=== PATIENT | male | born 1980 | race Caucasian/White ===

== ENCOUNTER 2019-05-17 12:58 | Emergency (ER) | payer BC ==
[2019-05-17 14:56] LABS: Influenza A Molecular Negative (Negative); Influenza B Molecular Negative (Negative)
--- NOTE | 2019-05-17 15:08 | UC ---
FLU HPI - HPI Summary HPI Summary: 38-year-old male presents with complaints of onset of intermittent lower abdominal cramping and diarrhea at 4:00 AM this morning. Reports had a fever of 101.3 F early this morning. Reports multiple episodes of watery diarrhea however has had no further episodes for approximately 2-3 hours. States cramping subsides after defecation. Currently without pain. States a couple hours ago started with some mild body aches and nasal congestion and was concerned for possible flu. No recent travel out of the country or antibiotic use. Denies headache, dizziness, ear pain, sore throat, chest pain, shortness of breath, nausea, or vomiting. - History of Current Complaint Chief Complaint: UCGeneralIllness Stated Complaint: FLU LIKE SYMPTOMS Time Seen by Provider: 05/17/19 15:02 Hx Obtained From: Patient Pain Intensity: 0 - Allergy/Home Medications Allergies/Adverse Reactions: Allergies Allergy/AdvReac Type Severity Reaction Status Date / Time No Known Allergies Allergy Verified 05/17/19 14:22 Home Medications: Home Medications Metoprolol Tartrate TAB* [Lopressor TAB*] 1 tab PO DAILY 05/17/19 [History Confirmed 05/17/19] Synthroid 125 MCG TAB* 1 tab PO DAILY 05/17/19 [History Confirmed 05/17/19] PMH/Surg Hx/FS Hx/Imm Hx Previously Healthy: Yes Endocrine History: Thyroid Disease Cardiovascular History: Hypertension, Atrial Fibrillation - Surgical History Surgery Procedure, Year, and Place: tumor chest removed - Family History Known Family History: Positive: Non-Contributory - Social History Occupation: Employed Full-time Lives: Alone Alcohol Use: None Substance Use Type: None Smoking Status (MU): Never Smoked Tobacco When Did the Patient Quit Smoking/Using Tobacco: vape Review of Systems All Other Systems Reviewed And Are Negative: Yes Constitutional: Positive: Fever, Chills Eyes: Negative: Drainage, Eye Redness ENT: Positive: Nasal Discharge, Sinus Congestion. Negative: Sore Throat, Ear Ache, Sinus Pain/Tenderness Respiratory: Negative: Shortness Of Breath, Cough Cardiovascular: Negative: Palpitations, Chest Pain Gastrointestinal: Positive: Abdominal Pain - See HPI, Diarrhea. Negative: Vomiting, Nausea Genitourinary: Positive: Negative Musculoskeletal: Positive: Myalgia Neurological/Mental Status: Positive: Negative Is Patient Immunocompromised?: No Physical Exam - Summary Physical Exam Summary: GENERAL APPEARANCE: Well developed, well nourished, alert and cooperative, and appears to be in no acute distress. EYES: Conjunctiva clear. No drainage. EARS: External auditory canals and tympanic membranes clear, hearing grossly intact. NOSE: No nasal discharge. THROAT: Pharynx normal. No tonsilar inflammation, swelling, exudate, or lesions. Uvula midline. NECK: Neck supple, non-tender without lymphadenopathy. CARDIAC: Normal S1 and S2. No S3, S4 or murmurs. Rhythm is regular. There is no peripheral edema, cyanosis or pallor. Extremities are warm and well perfused. Capillary refill is less than 2 seconds. Peripheral pulses intact. LUNGS: Clear to auscultation without rales, rhonchi, wheezing or diminished breath sounds. ABDOMEN: Positive bowel sounds. Soft, nondistended, nontender. No guarding or rebound. No masses or hepatosplenomegally. MUSKULOSKELETAL: ROM intact to all extremities. No joint erythema or tenderness. Normal muscular development. Normal gait. SKIN: Skin normal color, texture and turgor with no lesions or eruptions. Triage Information Reviewed: Yes Vital Signs: Initial Vital Signs Temp 99.3 F 05/17/19 13:58 Pulse 92 05/17/19 13:58 Resp 16 05/17/19 13:58 BP 131/86 05/17/19 13:58 Pulse Ox 99 05/17/19 13:58 Vital Signs Reviewed: Yes Flu Course/Dx - Course Course Of Treatment: 38-year-old male presents with complaints of onset of intermittent lower abdominal cramping and diarrhea at 4:00 AM this morning. Reports had a fever of 101.3 F early this morning. Reports multiple episodes of watery diarrhea however has had no further episodes for approximately 2-3 hours. States cramping subsides after defecation. Currently without pain. States a couple hours ago started with some mild body aches and nasal congestion and was concerned for possible flu. No recent travel out of the country or antibiotic use. Denies headache, dizziness, ear pain, sore throat, chest pain, shortness of breath, nausea, or vomiting. Afebrile. Vital signs stable. Patient's exam was overall unremarkable. Rapid influenza test was negative. Reviewed results with the patient. We discussed that his symptoms were likely from a viral gastroenteritis although I cannot fully rule out the possibility of a bacterial infection at this time. Recommending symptomatic treatment for acute diarrhea. He is to return here or follow-up with primary care in 3-5 days if symptoms are not improving. Anticipatory guidance and warning symptoms reviewed with the patient. Verbalizes understanding and agrees with plan of care. - Differential Dx/Diagnosis Differential Diagnosis/HQI/PQRI: Influenza, Other - gastroenteritis Provider Diagnosis: Diarrhea Discharge ED - Sign-Out/Discharge Documenting (check all that apply): Patient Departure All imaging exams completed and their final reports reviewed: No Studies - Discharge Plan Condition: Stable Disposition: HOME Patient Education Materials: Acute Diarrhea (ED) Referrals: No Primary Care Phys,NOPCP [Primary Care Provider] - Additional Instructions: Acute diarrhea typically resolves on its own without treatment over 2-3 days. The most important consideration with diarrhea is avoiding dehydration. Be sure to drink plenty of fluids. Avoid beverages containing caffeine or artificial sweeteners as these can worsen symptoms. Be sure to eat a well balanced diet. Boiled starches and cereals (potatoes, rice , cream of wheat, oatmeal) as well as food such as crackers, toast, bananas, soups and boiled vegetables are usually recommended if you are having watery diarrhea. Be sure to use good hand hygiene to prevent spreading infection. Use an over the counter pain medication such as acetaminophen (Tylenol) or ibuprofen (Advil, Motrin) according to directions as needed for aches and pains. Return here or follow up with your primary care provider in 3-5 days if symptoms persist. Seek immediate medical attention in the emergency room if you have fever greater than 100.5 F, have severe abdominal pain, persistent vomiting, blood in your vomit or stool, you become weak or dizzy, or have any worsening of symptoms. - Billing Disposition and Condition Condition: STABLE Disposition: Home
== END 2019-05-17 15:33 | disposition home or self-care (01) ==
LOC: UCEAST 12:58
DX: R19.7 Diarrhea, unspecified (principal); I10 Essential (primary) hypertension; I48.91 Unspecified atrial fibrillation; E07.89 Other specified disorders of thyroid; R50.9 Fever, unspecified; M79.10 Myalgia, unspecified site; R10.9 Unspecified abdominal pain; R09.89 Other specified symptoms and signs involving the circulatory and respiratory systems; Z79.899 Other long term (current) drug therapy
CPT/HCPCS: 99201; G0463